=== PATIENT | female | born 1950 | race African-American/Black ===

== ENCOUNTER 2021-09-28 18:57 | Emergency (ER) | payer MEDICARE, OTHER ==
[~2021-09-28] VITALS: Ht 177.8 cm; Wt 109.0 kg
[~2021-09-28 18:57] MED LIST: AMLO10TA80 PO; ASPI-1497 PO; BENA20TA10 PO; CINA30 PO; CLON0.2T PO; FOLI-43 PO; LABE100T5 PO; NOVOLOG INSULIN
[2021-09-28] MEDS ORDERED: HYDROCODONE/ACETAMINOPHEN 10/325MG TABLET PO ONE (20:15)
[2021-09-28] MEDS ORDERED: LEVOFLOXACIN 750MG PREMIX 150 ML IV ONE (20:30)
[2021-09-28 21:02] LABS: HEMATOCRIT. 31.7 % (36.0-48.0); HEMOGLOBIN. 10.4 g/dL (12.0-16.0); MEAN CORPUSCULAR HEMOGLOBIN 29.3 pg (28.0-32.0); MEAN CORPUSCULAR VOLUME 89.2 fL (81.0-99.0); MEAN PLATELET VOLUME 8.4 fl (7.4-10.4); PLATELET 467 x1000/uL (130-400); RED BLOOD CELL COUNT 3.56 mill/uL (4.2-5.4); RED CELL DISTRIBUTION WIDTH 20.3 % (11.6-14.6)
[2021-09-28 21:03] VITALS: BP 141/87
[2021-09-28 21:08] LABS: CHLORIDE 94 mEq/L (98-107)
[2021-09-28 21:31] LABS: PLATELET ESTIMATE INCREASED
== END 2021-09-28 22:02 | disposition left against medical advice (07) ==
LOC: ER 18:57
DX: E11.622 Type 2 diabetes mellitus with other skin ulcer (principal); L89.153 Pressure ulcer of sacral region, stage 3; L89.213 Pressure ulcer of right hip, stage 3; I12.0 Hypertensive chronic kidney disease with stage 5 chronic kidney disease or end stage renal disease; E11.22 Type 2 diabetes mellitus with diabetic chronic kidney disease; N18.6 End stage renal disease; Z99.2 Dependence on renal dialysis; Z79.84 Long term (current) use of oral hypoglycemic drugs; Z79.4 Long term (current) use of insulin; Z88.0 Allergy status to penicillin; Z79.899 Other long term (current) drug therapy; Z79.82 Long term (current) use of aspirin
CPT/HCPCS: 36415; 80053; 85025; 96365; 99284; J1956